=== PATIENT | female | born 1965 | race Caucasian/White ===

== ENCOUNTER 2018-11-06 06:24 | Day surgery (SDC) | payer BC ==
[2018-11-06] MEDS ORDERED: Midazolam 1 MG/ML 2 ML SDV ONE (07:06)
[2018-11-06] MEDS ORDERED: Ondansetron 4 MG/2 ML SDV ONE (07:06)
[2018-11-06] MEDS ORDERED: Propofol 200 MG/20 ML SDV ONE (07:06)
[2018-11-06] MEDS ORDERED: fentaNYL 100 MCG/2 ML SDV ONE (07:06)
[2018-11-06] MEDS ORDERED: Glycopyrrolate 0.2 MG/ML SDV ONE ×2 (07:07→09:33)
--- NOTE | 2018-11-06 07:36 | PCM.PREANE ---
Preanesthetic Assessment - Anesthesia/Transfusion/Family Hx Anesthesia History: Prior Anesthesia Without Reaction Other Type of Anesthesia Reaction Comment: pt adopted, unsure of family hx Family History of Anesthesia Reaction, Other: unknown adopted Transfusion History: No Prior Transfusion(s) Intubation History: Unknown - Review of Systems General: No Symptoms Pulmonary: No Symptoms Cardiovascular: No Symptoms Gastrointestinal: No Symptoms Neurological: No Symptoms Other: Reports: Diabetes - Physical Assessment NPO Status Date: 11/05/18 (Took AM med @ 5am) NPO Status Time: 22:30 Pulse: 69 O2 Sat by Pulse Oximetry: 98 Respiratory Rate: 16 Blood Pressure: 129/76 Temperature: 98 C Height: 1.68 m Weight: 104.326 kg ASA Class: 2 Mental Status: Alert & Oriented x3 Airway Class: Mallampati = 2 Dentition: Reports: Normal Dentition Thyro-Mental Finger Breadths: 3 Mouth Opening Finger Breadths: 3 ROM/Head Extension: Full Lungs: Clear to Auscultation Cardiovascular: Regular Rate - Allergies Allergies/Adverse Reactions: Allergies Allergy/AdvReac Type Severity Reaction Status Date / Time No Known Allergies Allergy Verified 11/03/18 11:38 - Blood Blood Available: No - Anesthesia Plan Free Text/Narrative:: GE with LMA Pre-Op Medication Ordered: None Beta Chi: Other - Acknowledgements Anesthesia Type Planned: General Anesthesia Pt an Appropriate Candidate for the Planned Anesthesia: Yes Alternatives and Risks of Anesthesia Discussed w Pt/Guardian: Yes Pt/Guardian Understands and Agrees with Anesthesia Plan: Yes Additional Comments: Discussed accepts ? answered. PreAnesthesia Questionnaire HEENT History: Reports: Other (See Below) Other HEENT History: wears glasses, diabetic retinopathy Cardiovascular History: Reports: Hypertension Other Cardiovascular History: HTN in the past, not on meds after weight loss Respiratory History: Reports: None Gastrointestinal History: Reports: None Genitourinary History: Reports: None Musculoskeletal History: Reports: Other (See Below) Other Musculoskeletal History: back surgeries for infection in back ( osyomyelitis) Neurological History: Reports: None Psychiatric History: Reports: None Endocrine/Metabolic History: Reports: Diabetes, Type II, Obesity/BMI 30+ Other Endocrine/Metabolic History: on no medication for diabetes after weight loss Hematologic History: Reports: None Immunologic History: Reports: None Oncologic (Cancer) History: Reports: None Dermatologic History: Reports: Other (See Below) Other Dermatologic History: painful scar-rt shoulder due to wound vac placement in the past - Past Surgical History Head Surgeries/Procedures: Reports: None HEENT Surgical History: Reports: Cataract Surgery, Tonsillectomy Other HEENT Surgeries/Procedures: Bilateral cataract surgery Cardiovascular Surgical History: Reports: None Respiratory Surgical History: Reports: None GI Surgical History: Reports: Bariatric Procedure Other GI Surgeries/Procedures: gastric bypass 10/04 Female Surgical History: Reports: None Endocrine Surgical History: Reports: None Neurological Surgical History: Reports: Other (See Below) Other Neurological Surgeries/Procedures: As above surgery due to infection to L3 - L4 Musculoskeletal Surgical History: Reports: Other (See Below) Other Musculoskeletal Surgeries/Procedures:: amputation of little toe-left foot Oncologic Surgical History: Reports: None Dermatological Surgical History: Reports: None - SUBSTANCE USE Smoking Status *Q: Never Smoker Recreational Drug Use History: No - HOME MEDS Home Medications: Home Meds Gabapentin [Neurontin] 1 tab PO TID 11/03/18 [History] Lifitegrast [Xiidra] 1 drop EYEBOTH BID 11/03/18 [History] Multivitamin [Multivitamins] 1 tab PO DAILY 11/03/18 [History] - CURRENT (IN HOUSE) MEDS Current Meds: Current Medications Hydrocodone Bitart/Acetaminophen ([place] 325-5 Mg) 1 tab PO Q4H PRN PRN Reason: Pain Bupivacaine HCl/Epinephrine Bitart (Marcaine 0.25%/Epinephrine 1:200,000) 10 ml INJECT ONETIME ONE Stop: 11/06/18 08:01 Cefazolin Sodium/Dextrose 2 gm (/ Premix) 50 mls @ 100 mls/hr IV ONETIME ONE Stop: 11/06/18 08:29 Lactated Ringer's (Ringers, Lactated) 1,000 mls @ 125 mls/hr IV ASDIRECTED LISSY Discontinued Medications Fentanyl (Sublimaze) Confirm Administered Dose 100 mcg .ROUTE .STK-MED ONE Stop: 11/06/18 07:07 Glycopyrrolate (Robinul) Confirm Administered Dose 0.2 mg .ROUTE .STK-MED ONE Stop: 11/06/18 07:08 Midazolam HCl (Versed 1 Mg/Ml) Confirm Administered Dose 2 mg .ROUTE .STK-MED ONE Stop: 11/06/18 07:07 Ondansetron HCl (Zofran) Confirm Administered Dose 4 mg .ROUTE .STK-MED ONE Stop: 11/06/18 07:07 Propofol (Diprivan 20 Ml) Confirm Administered Dose 400 mg .ROUTE .STK-MED ONE Stop: 11/06/18 07:07
[2018-11-06] MEDS ORDERED: Bupivacaine 25%/EPINEPHrine/PF 30 ML ONE (07:37)
[2018-11-06] MEDS ORDERED: ceFAZolin 2 GM in Premix Bag 1 BAG IV ONE (08:00)
[2018-11-06] MEDS ORDERED: Acetaminophen/HYDROcodone 325-5 MG Tab PO PRN (08:00)
[2018-11-06] MEDS ORDERED: Bupivacaine 0.25%/EPINEPHrine 1:200,000 10 ML SDV INJECT ONE (08:00)
[2018-11-06] MEDS ORDERED: Lactated Ringers 1,000 ML IV SCH (08:00)
[2018-11-06] MEDS ORDERED: Rocuronium 10 MG/ML 10 ML Syringe ONE (08:28)
[2018-11-06] MEDS ORDERED: Morphine 10 MG/ML Syringe ONE (08:30)
[2018-11-06] MEDS ORDERED: EPINEPHrine 1 MG/ML SDV ONE (08:34)
[2018-11-06] MEDS ORDERED: Lidocaine 1% 50 ML MDV ONE (08:35)
[2018-11-06] MEDS ORDERED: Sodium Chloride 0.9% 40 ML ONE (08:39)
[2018-11-06] MEDS ORDERED: ePHEDrine 50 MG/ML SDV ONE (08:39)
[2018-11-06] MEDS ORDERED: ceFAZolin 1 GM Vial ONE (08:39)
[2018-11-06] MEDS ORDERED: Neostigmine Methylsulfate 1 MG/ML 5 ML Syringe ONE (09:33)
--- NOTE | 2018-11-06 11:03 | PCM48HPAN ---
Post Anesthesia Note - EVALUATION WITHIN 48HRS OF ANESTHETIC Vital Signs in Normal Range: Yes Patient Participated in Evaluation: Yes Respiratory Function Stable: Yes Airway Patent: Yes Cardiovascular Function Stable: Yes Hydration Status Stable: Yes Pain Control Satisfactory: Yes Nausea and Vomiting Control Satisfactory: Yes Mental Status Recovered: Yes Pulse Rate: 69 Resp Rate: 14 Temperature: 208.4 F Blood Pressure: 129/76
[2018-11-06 13:25] VITALS: BP 138/71
--- NOTE | 2018-11-07 10:14 | PCM.OPNOTE ---
- General Post-Op/Procedure Note Date of Surgery/Procedure: 11/06/18 Operative Procedure(s): excision of right chest scar with copmlex repair 20cm and fat grafting to scar 30cc Pre Op Diagnosis: tethered, painful right chest scar Post-Op Diagnosis: Same Anesthesia Technique: General ET Tube, Local Primary Surgeon: Caitlyn Mejia [employer] Sales Representative: Sarita Schultz Reason [employer] Sales Representative Was Necessary: retraction prepping draping and closure assistance Complications: None Condition: Good
--- NOTE | 2018-11-08 16:57 | OR ---
SURGEON: TEETEE GERONIMO MD DATE OF PROCEDURE: 11/06/2018 PREOPERATIVE DIAGNOSIS: Tethered painful right chest scar. POSTOPERATIVE DIAGNOSIS: Tethered painful right chest scar. PROCEDURE: Excision of right chest scar with complex repair of 20 cm and fat grafting of scar, 30 mL. CORPORATE EVENT PLANNER: SARAHI Robbins. REASON FOR AND ROLE OF CORPORATE EVENT PLANNER: Retraction, prepping, draping, positioning and closure assistance. ANESTHESIA: General ET tube with local. INDICATIONS: Ms. Guy is a 53-year-old female, seen today with a significant large scar that is tethered in few ulnar right chest area. Risks and benefits of removal, repair, and grafting of tethered areas were discussed with her and she was in agreement to proceed. Risks were including, but not limited to, bleeding, infection, damage to underlying or overlying structures, possible need for future interventions, and possible scarring. PROCEDURE IN DETAIL: After informed consent was obtained and placed on the chart, the patient was brought to the operating theater and laid in supine position. After adequate general anesthesia was obtained, the area was prepped and draped and a time-out was completed to confirm side and site. Attention was then paid to excision of the previous large tethered and dense scar. This was removed and sent for pathology. Once adequately removed, the tissue was undermined significantly mostly in the lateral and inferior direction and advanced and anchored to the clavicle bone and fascia itself. This was done with deep 2-0 PDS Stratafix suture. Once adequately anchored and advanced, attention was then paid to closure of the skin with 3-0 Monocryl Stratafix for the dermis, and a running 4-0 subcuticular Stratafix for the skin. Once the wounds were adequately closed, attention was then paid to harvest of the fat grafting from the abdominal area. Tumescent was infiltrated for a total of 600 mL and 300 mL of fat was harvested. Once adequately harvested, the MicroAire fat grafting system was used to isolate the fat graft itself. A total of 30 mL was then used and injected around the scar into the tethered and thinned areas to help soften and fill the contour deficits. Once this was completed, the wounds were dressed with Steri-Strips, fluffs, and ABD dressing. The patient tolerated this well, and all counts and needles were correct at the end of the case. FOLLOWUP INSTRUCTIONS: The patient will see us in clinic in approximately one week, sooner if any problems, questions, or concerns. HEGGTHE / JOHNL /[id number]
== END 2018-11-06 11:18 | disposition home or self-care (01) ==
LOC: MW.SDS 06:24
PROVIDERS: ATTEND Plastic Surgery
DX: L90.5 Scar conditions and fibrosis of skin (principal); I10 Essential (primary) hypertension; E11.9 Type 2 diabetes mellitus without complications; E66.9 Obesity, unspecified; Z87.39 Personal history of other diseases of the musculoskeletal system and connective tissue; Z79.899 Other long term (current) drug therapy; Z98.84 Bariatric surgery status
CPT/HCPCS: 13101; 13102; 20926; J0131; J0171; J0690; J2001; J2250; J2270; J2405; J2704; J3010; J3490; J7120

== ENCOUNTER 2020-11-10 21:50 | Emergency (ER) | payer BC ==
[2020-11-10] MEDS ORDERED: Cephalexin 500 MG Cap PO ONE (22:53)
--- NOTE | 2020-11-10 22:59 | EDM.PDOC ---
ED HPI GENERAL MEDICAL PROBLEM - General Chief Complaint: Upper Extremity Injury/Pain Stated Complaint: LT HAND SWOLLEN Time Seen by Provider: 11/10/20 22:31 - History of Present Illness INITIAL COMMENTS - FREE TEXT/NARRATIVE: HISTORY AND PHYSICAL: History of present illness: This is a 55-year-old female who presents ER today complaining of pain at suture sites that were placed approximately 2 weeks ago for carpal tunnel syndrome. Patient reports that she had surgery done in [facility] under Dr. Diop. Patient reports that she returned to work couple days ago at [employer] and today started feeling extreme amount of pressure and discomfort at the proximal sutures at her wrist. Patient denies any other symptomatology. Patient reports of the distal sutures are not bothering her. Patient ports that she is scheduled to see Dr. Parker on Friday. Review of systems: As per history of present illness and below otherwise all systems reviewed and negative. Past medical history: As per history of present illness and as reviewed below otherwise noncontributory. Surgical history: As per history of present illness and as reviewed below otherwise noncontributory. Social history: No reported history of drug or alcohol abuse. Family history: As per history of present illness and as reviewed below otherwise noncontributory. Physical exam: This patient was seen and evaluated during the 2019 SARS-CoV-2 novel coronavirus pandemic period. Community viral transmission is ongoing at time of this encounter and the emergency department is operating under pandemic response procedures. Constitutional: Patient is oriented to person, place, and time. Appears well- developed and well-nourished. No distress. HEENT: Moist mucous membranes Head: Normocephalic and atraumatic Eyes: Right eye exhibits no discharge. Left eye exhibits no discharge. No scleral icterus Neck: Normal range of motion. No tracheal deviation present. Cardiovascular: Normal rate and regular rhythm. Pulmonary: Effort normal, no respiratory distress. Abdominal: No distention Musculoskeletal: Normal range of motion Neurologic: Alert and oriented to person, place and time. Skin: [place], warm and dry. Psychiatric: Normal mood and affect. Behavior is normal. Judgment and thought content normal. Nursing note and vital signs have been reviewed Patient's ER physical exam is significant for swelling, tenderness and slight warmth at the proximal suture sites. Wound was explored in a moderate amount of purulent material was expressed out of the wound. Distal wound is clean and dry without any fluctuance erythema or warmth. Patient is otherwise neurovascular intact. Patient is able to flex and extend all fingers. Patient sensation is intact. After releasing the purulent material, the patient reports that she has decreased pain and increased mobility to her fingers distally. Diagnostics: Wound cultures Therapeutics: I&D of postoperative abscess to left hand performed in ED. Moderate amount of purulent drainage obtained. Sutures were removed after discussion with Dr. Parker. Cultures have been sent. Assessment and plan: This is a 55-year-old female who presents ER today with a postoperative wound infection of her left wrist status post carpal tunnel surgery. I have discussed the case with Dr. Parker. He has recommended removal of the sutures and to drain out the purulent material. Patient be started on Keflex and will have the wound stay open until reevaluated by Dr. Parker on Friday. Reassessment at the time of disposition demonstrates that the patient is in no acute distress. The patient has remained stable throughout the entire ED visit and is without objective evidence for acute process requiring urgent intervention or hospitalization. The patient is stable for discharge, counseling is provided as documented above, discussed symptomatic treatment and specific conditions for return. I have spoken with the patient/caregiver and discussed todays findings, in addition to providing specific details for the plan of care. Questions are answered and there is agreement with the plan. Definitive disposition and diagnosis as appropriate pending reevaluation and review of above. Left Wrist Pain Score (Numeric/FACES): 5 - Related Data Allergies Allergy/AdvReac Type Severity Reaction Status Date / Time No Known Allergies Allergy Verified 11/10/20 22:21 Home Meds: Home Meds Gabapentin [Neurontin] 900 mg PO TID 11/10/20 [History] Losartan [Cozaar] 50 mg PO DAILY 11/10/20 [History] cephALEXin [Keflex] 500 mg PO Q8H #21 cap 11/10/20 [Rx] metFORMIN [Glucophage XR] 500 mg PO BID 11/10/20 [History] traMADol [Ultram] 50 mg PO Q6H PRN #12 tab 11/10/20 [Rx] Past Medical History HEENT History: Reports: Other (See Below) Other HEENT History: wears glasses, diabetic retinopathy Cardiovascular History: Reports: Hypertension Other Cardiovascular History: HTN in the past, not on meds after weight loss Respiratory History: Reports: None Gastrointestinal History: Reports: None Genitourinary History: Reports: None Musculoskeletal History: Reports: Arthritis, Other (See Below) Other Musculoskeletal History: back surgeries for infection in back (osyomyelitis) Neurological History: Reports: None Psychiatric History: Reports: None Endocrine/Metabolic History: Reports: Diabetes, Type II, Obesity/BMI 30+ Other Endocrine/Metabolic History: on no medication for diabetes after weight loss Hematologic History: Reports: None Immunologic History: Reports: None Oncologic (Cancer) History: Reports: None Dermatologic History: Reports: Other (See Below) Other Dermatologic History: painful scar-rt shoulder due to wound vac placement in the past - Infectious Disease History Infectious Disease History: Reports: None - Past Surgical History Head Surgeries/Procedures: Reports: None HEENT Surgical History: Reports: Cataract Surgery, Tonsillectomy Other HEENT Surgeries/Procedures: Bilateral cataract surgery Cardiovascular Surgical History: Reports: None Respiratory Surgical History: Reports: None GI Surgical History: Reports: Bariatric Procedure Other GI Surgeries/Procedures: gastric bypass 10/04 Female Surgical History: Reports: None Endocrine Surgical History: Reports: None Neurological Surgical History: Reports: Other (See Below) Other Neurological Surgeries/Procedures: As above surgery due to infection to L3- L4 Musculoskeletal Surgical History: Reports: Other (See Below) Other Musculoskeletal Surgeries/Procedures:: amputation of little toe-left foot Oncologic Surgical History: Reports: None Dermatological Surgical History: Reports: None Social & Family History - Tobacco Use Tobacco Use Status *Q: Never Tobacco User - Caffeine Use Caffeine Use: Reports: None - Recreational Drug Use Recreational Drug Use: No Review of Systems - Review of Systems Review Of Systems: See Below ED EXAM, GENERAL - Physical Exam Exam: See Below Course - Vital Signs Last Recorded V/S: Last Vital Signs Temp 98.5 F 11/10/20 22:22 Pulse 81 11/10/20 22:22 Resp 16 11/10/20 22:22 BP 149/64 H 11/10/20 22:22 Pulse Ox 100 11/10/20 22:22 - Orders/Labs/Meds Orders: Active Orders 24 hr Category Date Time Status CULTURE WOUND [RM] Stat Lab 11/10/20 22:47 Received cephALEXin [Keflex] Med 11/10/20 22:53 Once 500 mg PO ONETIME ONE Departure - Departure Time of Disposition: 22:56 Disposition: Home, Self-Care 01 Condition: Good Clinical Impression: Postoperative wound infection - Discharge Information Instructions: Wound Infection Referrals: PCP,None [Primary Care Provider] - Additional Instructions: You were seen and evaluated in the ER today and were diagnosed with a postoperative wound infection. The sutures have been removed and we have drained as much purulent material as we can. I have discussed the case with your surgeon and he is recommending that we removed sutures and placed on Keflex 500 mg 3 times a day for 7 days. He wants to see you in the office on Friday. Please return to the ER if you have increased pain or swelling. Please make sure that you keep the wound from closing so that any further purulent material can continue to be expressed out. I will give you prescription for Ultram to assist you with your pain and discomfort. The following information is given to patients seen in the emergency department who are being discharged to home. This information is to outline your options for follow-up care. We provide all patients seen in our emergency department with a follow-up referral. The need for follow-up, as well as the timing and circumstances, are variable depending upon the specifics of your emergency department visit. If you don't have a primary care physician on staff, we will provide you with a referral. We always advise you to contact your personal physician following an emergency department visit to inform them of the circumstance of the visit and for follow-up with them and/or the need for any referrals to a consulting specialist. The emergency department will also refer you to a specialist when appropriate. This referral assures that you have the opportunity for follow-up care with a specialist. All of these measure are taken in an effort to provide you with optimal care, which includes your follow-up. Under all circumstances we always encourage you to contact your private physician who remains a resource for coordinating your care. When calling for follow-up care, please make the office aware that this follow-up is from your recent emergency room visit. If for any reason you are refused follow-up, please contact the [facility] Emergency Department at and asked to speak to the emergency department charge nurse. [facility] - Primary Care [address] [place] [id number] [facility] [address] [place] [address] Sepsis Event Note (ED) - Evaluation Sepsis Screening Result: No Definite Risk - Focused Exam Vital Signs: Vital Signs Temp Pulse Resp BP Pulse Ox 11/10/20 22:22 98.5 F 81 16 149/64 H 100 - My Orders Last 24 Hours: My Active Orders 11/10/20 22:47 CULTURE WOUND [RM] Stat 11/10/20 22:53 cephALEXin [Keflex] 500 mg PO ONETIME ONE - Assessment/Plan Last 24 Hours: My Active Orders 11/10/20 22:47 CULTURE WOUND [RM] Stat 11/10/20 22:53 cephALEXin [Keflex] 500 mg PO ONETIME ONE
[2020-11-10 23:21] VITALS: BP 140/72; PULSE 75
== END 2020-11-10 23:11 | disposition home or self-care (01) ==
LOC: MW.ED 21:50
DX: T81.49XA Infection following a procedure, other surgical site, initial encounter (principal); I10 Essential (primary) hypertension; E66.9 Obesity, unspecified; E11.319 Type 2 diabetes mellitus with unspecified diabetic retinopathy without macular edema; Z79.84 Long term (current) use of oral hypoglycemic drugs; Z79.899 Other long term (current) drug therapy; Z68.38 Body mass index [BMI] 38.0-38.9, adult
CPT/HCPCS: 10060; 87070; 87077; 87186; 99283; A9270

== ENCOUNTER 2020-11-11 14:03 | Emergency (ER) | payer BC ==
--- NOTE | 2020-11-11 14:18 | EDM.PDOC ---
ED HPI GENERAL MEDICAL PROBLEM - General Chief Complaint: Skin Complaint Stated Complaint: VERY SWOLLEN LT HAND Time Seen by Provider: 11/11/20 14:05 Source of Information: Reports: Patient History Limitations: Reports: No Limitations - History of Present Illness INITIAL COMMENTS - FREE TEXT/NARRATIVE: HISTORY AND PHYSICAL: History of present illness: Patient is a 55-year-old female who presents emergency room today with concern of worsening infection of her left hand following a carpal tunnel surgery and a trigger release surgery that was done approximately [address] Diop in [place]. Patient states he was seen in the emergency room last night and has received Keflex antibiotics and states that she had a small area of infection drained at her incision site. Patient states that pus did come out. Patient states that she took a dose of the antibiotics last night before bed and took another dose of antibiotics this morning but states when she woke up this morning, she has had worsening infection, unable to completely straighten her fingers, and the infection is spreading up her forearm. Patient states that the infection is significantly worse this morning than it was when she was seen in the emergency room last night. Patient states that she called the [place] emergency room trying to get a hold of Dr. Diop she and was instructed that he was not on-call and they recommended she come to [facility] emergency room instead. Patient states she has a history of osteomyelitis in the past and was also concerned about this. Patient denies fever, chills, chest pain, shortness of breath, or cough. Denies headache, neck stiff ness, change in vision, syncope, or near syncope. Denies nausea, vomiting, abdominal pain, diarrhea, constipation, or dysuria. Has not noted any blood in urine or stool. Patient has been eating and drinking appropriately. Review of systems: As per history of present illness and below otherwise all systems reviewed and negative. Past medical history: As per history of present illness and as reviewed below otherwise noncontributory. Surgical history: As per history of present illness and as reviewed below otherwise noncontributory. Social history: See social history for further information Family history: As per history of present illness and as reviewed below otherwise noncontributory. Physical exam: General: Patient is alert, oriented, and in no acute distress. Patient sitting comfortably on exam table. Vitals stable and reviewed by me. HEENT: Atraumatic, normocephalic, pupils equal and reactive bilaterally, negative for conjunctival pallor or scleral icterus, mucous membranes moist, TMs normal bilaterally, throat clear, neck supple, nontender, trachea midline. No drooling or trismus noted. No meningeal signs. No hot potato voice noted. Lungs: Clear to auscultation, breath sounds equal bilaterally, chest nontender. Heart: S1S2, regular rate and rhythm without overt murmur Abdomen: Soft, nondistended, nontender. Negative for masses or hepatosplenomegaly. Negative for costovertebral tenderness. Pelvis: Stable nontender. Genitourinary: Deferred. Rectal: Deferred. Skin: Intact, warm, dry. No lesions or rashes noted. Extremities: The left hand is edematous/erythematous of both the volar and palmar aspects with fingers held in flexion. There is an incision at the proximal base of the left palmar aspect with a small amount of clear fluid draining and another incision with sutures in place at the distal palmar aspect of the left hand that appears to be healing well. Patient is unable to straighten her digits of the left hand with active ROM and has severe pain with passive extension of all digits of the left hand. The area of erythema extends up the inner portion of the left wrist and half way up the forearm with increase in warmth. Limited ROM of the left wrist due to pain. Radial pulse is grossly intact of the LUE with cap refill < 2 seconds. Intact sensation to light and deep touch of the LUE. Otherwise, atraumatic, negative for cords or calf pain. Neurovascular unremarkable. Neuro: Awake, alert, oriented. Cranial nerves II through XII unremarkable. Cerebellum unremarkable. Motor and sensory unremarkable throughout. Exam nonfocal. Notes: Initial exam, patient is vitally stable and otherwise well-appearing but does have a significant infection of her left hand which is extending up her left forearm. Clinically, I am concerned of possible flexor tenosynovitis versus worsening postop infection/cellulitis. Patient also has a history of osteomyelitis so also concerned about this in my differential. We will perform lab work as well as x-ray imaging of the area of infection. Will obtain blood cultures, start vancomycin and Zosyn IV while awaiting diagnostic completion. I was able to speak to patients surgeon at [facility], Dr. Diop who recommends transfer to their facility to be admitted under their hospitalist with consult to Dr. Cutler. I spoke to Dr. Hightower, hospitalist for [facility], thoroughly discussed patient's case and is accepting of transfer. Patient remains comfortable and vitally stable throughout stay in ED. Patient will transfer via private vehicle. Voices understanding and is agreeable to plan of care. Denies any further questions or concerns at this time. Diagnostics: CBC, CMP, Blood cultures x 2, lactate, hand/forearm XR/LT Therapeutics: NS, Vancomycin, Zosyn Impression: Post op wound infection Cellulitis, cannot r/o flexor tenosynovitis Plan: Transfer to Dr. Hightower (Dr. Diop/Ortho), hospitalist, at [facility] in [place] via private vehicle. Definitive disposition and diagnosis as appropriate pending reevaluation and review of above. Left hand Pain Score (Numeric/FACES): 6 - Related Data Allergies Allergy/AdvReac Type Severity Reaction Status Date / Time No Known Allergies Allergy Verified 11/10/20 22:21 Home Meds: Home Meds Gabapentin [Neurontin] 900 mg PO TID 11/10/20 [History] Losartan [Cozaar] 50 mg PO DAILY 11/10/20 [History] cephALEXin [Keflex] 500 mg PO Q8H #21 cap 11/10/20 [Rx] metFORMIN [Glucophage XR] 500 mg PO BID 11/10/20 [History] traMADol [Ultram] 50 mg PO Q6H PRN #12 tab 11/10/20 [Rx] Past Medical History HEENT History: Reports: Other (See Below) Other HEENT History: wears glasses, diabetic retinopathy Cardiovascular History: Reports: Hypertension Other Cardiovascular History: HTN in the past, not on meds after weight loss Respiratory History: Reports: None Gastrointestinal History: Reports: None Genitourinary History: Reports: None Musculoskeletal History: Reports: Arthritis, Other (See Below) Other Musculoskeletal History: back surgeries for infection in back (osyomyelitis) Neurological History: Reports: None Psychiatric History: Reports: None Endocrine/Metabolic History: Reports: Diabetes, Type II, Obesity/BMI 30+ Other Endocrine/Metabolic History: on no medication for diabetes after weight loss Hematologic History: Reports: None Immunologic History: Reports: None Oncologic (Cancer) History: Reports: None Dermatologic History: Reports: Other (See Below) Other Dermatologic History: painful scar-rt shoulder due to wound vac placement in the past - Infectious Disease History Infectious Disease History: Reports: None - Past Surgical History Head Surgeries/Procedures: Reports: None HEENT Surgical History: Reports: Cataract Surgery, Tonsillectomy Other HEENT Surgeries/Procedures: Bilateral cataract surgery Cardiovascular Surgical History: Reports: None Respiratory Surgical History: Reports: None GI Surgical History: Reports: Bariatric Procedure Other GI Surgeries/Procedures: gastric bypass 10/04 Female Surgical History: Reports: None Endocrine Surgical History: Reports: None Neurological Surgical History: Reports: Other (See Below) Other Neurological Surgeries/Procedures: As above surgery due to infection to L 3- L4 Musculoskeletal Surgical History: Reports: Other (See Below) Other Musculoskeletal Surgeries/Procedures:: amputation of little toe-left foot Oncologic Surgical History: Reports: None Dermatological Surgical History: Reports: None Social & Family History - Caffeine Use Caffeine Use: Reports: None ED ROS GENERAL - Review of Systems Review Of Systems: Comprehensive ROS is negative, except as noted in HPI. ED EXAM, SKIN/RASH Exam: See Below (see dictation) Course - Vital Signs Last Recorded V/S: Last Vital Signs Temp 96.9 F 11/11/20 14:23 Pulse 88 11/11/20 16:25 Resp 17 11/11/20 16:25 BP 131/45 L 11/11/20 16:25 Pulse Ox 95 11/11/20 16:25 - Orders/Labs/Meds Orders: Active Orders 24 hr Category Date Time Status CULTURE BLOOD [BC] Stat Lab 11/11/20 14:44 Received CULTURE BLOOD [BC] Stat Lab 11/11/20 15:06 Received Sodium Chloride 0.9% [Saline Flush] Med 11/11/20 14:42 Active 10 ml FLUSH ASDIRECTED PRN Sodium Chloride 0.9% [Saline Flush] Med 11/11/20 14:42 Active 2.5 ml FLUSH ASDIRECTED PRN Blood Culture x2 Reflex Set [OM.PC] Stat Oth 11/11/20 14:43 Ordered Saline Lock Insert [OM.PC] Stat Oth 11/11/20 14:42 Ordered Medication Orders Sodium Chloride (Sodium Chloride 0.9% 10 Ml Syringe) 10 ml FLUSH ASDIRECTED PRN PRN Reason: Keep Vein Open Last Admin: 11/11/20 14:45 Dose: 10 ml Documented by: CARLITOS Sodium Chloride (Sodium Chloride 0.9% 2.5 Ml Syringe) 2.5 ml FLUSH ASDIRECTED PRN PRN Reason: Keep Vein Open Last Admin: 11/11/20 14:45 Dose: 2.5 ml Documented by: CARLITOS Labs: Laboratory Tests 11/11/20 11/11/20 11/11/20 Range/Units 14:44 14:44 14:44 WBC 15.10 H (4.0-11.0) K/uL RBC 3.50 L (4.30-5.90) M/uL Hgb 11.0 L (12.0-16.0) g/dL Hct 33.2 L (36.0-46.0) % MCV 94.9 (80.0-98.0) fL MCH 31.4 (27.0-32.0) pg MCHC 33.1 (31.0-37.0) g/dL RDW Std Deviation 42.6 (28.0-62.0) fl RDW Coeff of Ratna 12 (11.0-15.0) % Plt Count 215 (150-400) K/uL MPV 10.60 (7.40-12.00) fL Neut % (Auto) 79.5 (48.0-80.0) % Lymph % (Auto) 12.5 L (16.0-40.0) % Sherman % (Auto) 7.4 (0.0-15.0) % Eos % (Auto) 0.5 (0.0-7.0) % Baso % (Auto) 0.1 (0.0-1.5) % Neut # (Auto) 12.0 H (1.4-5.7) K/uL Lymph # (Auto) 1.9 (0.6-2.4) K/uL Sherman # (Auto) 1.1 H (0.0-0.8) K/uL Eos # (Auto) 0.1 (0.0-0.7) K/uL Baso # (Auto) 0.0 (0.0-0.1) K/uL Nucleated RBC % 0.0 /100WBC Nucleated RBCs # 0 K/uL Lactate 0.9 (0.20-2.00) mmol/L Sodium 136 (136-145) mmol/L Potassium 4.3 (3.5-5.1) mmol/L Chloride 100 (98-107) mmol/L Carbon Dioxide 27.7 (21.0-32.0) mmol/L BUN 25 H (7.0-18.0) mg/dL Creatinine 0.9 (0.6-1.0) mg/dL Est Cr Clr Drug Dosing 66.90 mL/min Estimated GFR (MDRD) > 60.0 ml/min Glucose 185 H (74-106) mg/dL Calcium 9.1 (8.5-10.1) mg/dL Total Bilirubin 0.7 (0.2-1.0) mg/dL AST 12 L (15-37) IU/L ALT 22 (14-63) IU/L Alkaline Phosphatase 101 (46-116) U/L Total Protein 8.2 (6.4-8.2) g/dL Albumin 3.9 (3.4-5.0) g/dL Globulin 4.3 H (2.6-4.0) g/dL Albumin/Globulin Ratio 0.9 (0.9-1.6) Meds: Medications Generic Name Dose Route Start Last Admin Trade Name Freq PRN Reason Stop Dose Admin Sodium Chloride 10 ml 11/11/20 14:42 11/11/20 14:45 Sodium Chloride 0.9% 10 Ml Syringe FLUSH 10 ml ASDIRECTED PRN Administration Keep Vein Open Sodium Chloride 2.5 ml 11/11/20 14:42 11/11/20 14:45 Sodium Chloride 0.9% 2.5 Ml Syringe FLUSH 2.5 ml ASDIRECTED PRN Administration Keep Vein Open Discontinued Medications Generic Name Dose Route Start Last Admin Trade Name Freq PRN Reason Stop Dose Admin Vancomycin HCl 1 gm/ Sodium 250 mls @ 166 mls/hr 11/11/20 14:37 11/11/20 14:43 Chloride IV 11/11/20 16:07 166 mls/hr ONETIME ONE Administration Piperacillin Sod/Tazobactam 50 mls @ 100 mls/hr 11/11/20 14:37 11/11/20 14:43 Sod 3.375 gm/ Sodium Chloride IV 11/11/20 15:06 100 mls/hr ONETIME ONE Administration Sodium Chloride 1,000 mls @ 999 mls/hr 11/11/20 14:42 11/11/20 14:44 Normal Saline IV 11/11/20 15:42 999 mls/hr BOLUS ONE Administration Departure - Departure Time of Disposition: 17:57 Disposition: DC/[facility]fer to [facility] 02 Clinical Impression: Postoperative wound infection Cellulitis Qualifiers: Site of cellulitis: extremity Site of cellulitis of extremity: upper extremity Laterality: left Qualified Code(s): L03.114 - Cellulitis of left upper limb - Discharge Information Referrals: Zheng Martin MD [Primary Care Provider] - Forms: ED Department Discharge Sepsis Event Note (ED) - Focused Exam Vital Signs: Vital Signs Temp Pulse Resp BP Pulse Ox 11/11/20 16:25 88 17 131/45 L 95 11/11/20 14:23 96.9 F 93 18 140/76 98 - My Orders Last 24 Hours: My Active Orders 11/11/20 14:42 Sodium Chloride 0.9% [Saline Flush] 10 ml FLUSH ASDIRECTED PRN Sodium Chloride 0.9% [Saline Flush] 2.5 ml FLUSH ASDIRECTED PRN Saline Lock Insert [OM.PC] Stat 11/11/20 14:43 Blood Culture x2 Reflex Set [OM.PC] Stat 11/11/20 14:44 CULTURE BLOOD [BC] Stat 11/11/20 15:06 CULTURE BLOOD [BC] Stat - Assessment/Plan Last 24 Hours: My Active Orders 11/11/20 14:42 Sodium Chloride 0.9% [Saline Flush] 10 ml FLUSH ASDIRECTED PRN Sodium Chloride 0.9% [Saline Flush] 2.5 ml FLUSH ASDIRECTED PRN Saline Lock Insert [OM.PC] Stat 11/11/20 14:43 Blood Culture x2 Reflex Set [OM.PC] Stat 11/11/20 14:44 CULTURE BLOOD [BC] Stat 11/11/20 15:06 CULTURE BLOOD [BC] Stat
[2020-11-11] MEDS ORDERED: Piperacillin/Tazobactam 3.375 GM in Sodium Chloride 0.9% 50 ML IV ONE (14:37)
[2020-11-11] MEDS ORDERED: Sodium Chloride 0.9% 2.5 ML Syringe FLUSH PRN (14:42)
[2020-11-11] MEDS ORDERED: Sodium Chloride 0.9% 1,000 ML IV ONE (14:42)
[2020-11-11] MEDS ORDERED: Sodium Chloride 0.9% 10 ML Syringe FLUSH PRN (14:42)
[2020-11-11 15:14] LABS: BLOOD UREA NITROGEN,BUN 25 mg/dL (7.0-18.0); CARBON DIOXIDE,CO2 27.7 mmol/L (21.0-32.0); CHLORIDE,CL 100 mmol/L (98-107); GLUCOSE RANDOM 185 mg/dL (74-106); POTASSIUM,K 4.3 mmol/L (3.5-5.1); SODIUM,NA 136 mmol/L (136-145)
--- NOTE | 2020-11-11 15:45 | CR ---
INDICATION: Cellulitis. Assess for osteomyelitis. Recent carpal tunnel and trigger finger surgery. Decreased range of motion. Possible infection. TECHNIQUE: Three views of the left hand. FINDINGS: Normal skeletal mineralization. Dorsal soft tissue swelling. The palmar soft tissue swelling. No fracture, dislocation, erosion, or radiodense foreign body. No plain radiographic evidence for osteomyelitis. IMPRESSION: Soft tissue swelling of the left hand. No fracture, dislocation, erosion, and no plain radiographic evidence for osteomyelitis. Dictated by Zelalem Cabrera MD @ Nov 11 2020 3:43PM Signed by Dr. Zelalem Cabrera @ Nov 11 2020 3:44PM
--- NOTE | 2020-11-11 15:47 | CR ---
INDICATION: Cellulitis. Evaluate osteomyelitis. TECHNIQUE: Two views of the left forearm. FINDINGS: Soft tissue swelling about the left forearm/edema. No fracture, dislocation, erosion, or intrinsic skeletal lesion. No evidence for osteomyelitis. IMPRESSION: Soft tissue swelling/edema. The examination is otherwise negative. Dictated by Zelalem Cabrera MD @ Nov 11 2020 3:43PM Signed by Dr. Zelalem Cabrera @ Nov 11 2020 3:45PM
[2020-11-11 16:27] VITALS: BP 131/45; PULSE 88
== END 2020-11-11 17:45 ==
LOC: MW.ED 14:03
DX: T81.49XA Infection following a procedure, other surgical site, initial encounter (principal); L03.114 Cellulitis of left upper limb; I10 Essential (primary) hypertension; E11.319 Type 2 diabetes mellitus with unspecified diabetic retinopathy without macular edema; E66.9 Obesity, unspecified; Z68.38 Body mass index [BMI] 38.0-38.9, adult; Z98.890 Other specified postprocedural states; Z79.84 Long term (current) use of oral hypoglycemic drugs; Z79.899 Other long term (current) drug therapy
CPT/HCPCS: 36415; 73090; 73130; 80053; 83605; 85025; 87040; 96365; 96366; 96367; 99285; J2543; J3370; J7030; J7050; 99284

== ENCOUNTER 2024-08-02 20:28 | Emergency (ER) | payer OTHER, BC ==
[2024-08-02 21:31] VITALS: BP 174/75
[2024-08-02] MEDS: Acetaminophen/oxyCODONE 325-5 MG Tab PO ONE (22:40)
[2024-08-03 00:14] VITALS: PULSE 75
== END 2024-08-03 00:13 | disposition home or self-care (01) ==
LOC: MW.ED 20:28
DX: S82.65XA Nondisplaced fracture of lateral malleolus of left fibula, initial encounter for closed fracture (principal); Z75.8 Other problems related to medical facilities and other health care; I10 Essential (primary) hypertension; E11.9 Type 2 diabetes mellitus without complications; E66.9 Obesity, unspecified; Z86.16 Personal history of COVID-19; Z98.84 Bariatric surgery status; Z79.899 Other long term (current) drug therapy; Z68.38 Body mass index [BMI] 38.0-38.9, adult; W00.0XXA Fall on same level due to ice and snow, initial encounter
CPT/HCPCS: 29515; 73610; 99283; A9270

== ENCOUNTER 2024-11-10 06:31 | Day surgery (SDC) | payer BC, MEDICARE ==
[~2024-11-10 06:31] MED LIST: Acetaminophen 1,000 MG in Premix Bag 1 BAG IV SCH; ceFAZolin 2 GM in Sodium Chloride 0.9% 50 ML IV ONE
[2024-11-10] MEDS ORDERED: Sodium Chloride 0.9% 20 ML ONE (06:42)
[2024-11-10] MEDS ORDERED: fentaNYL 100 MCG/2 ML SDV ONE (06:42)
[2024-11-10] MEDS ORDERED: dexmedeTOMIDine HCl 200 MCG/2 ML SDV ONE (06:42)
[2024-11-10] MEDS ORDERED: Morphine 10 MG/ML SDV ONE (06:42)
[2024-11-10] MEDS ORDERED: Magnesium Sulfate (4.06 MEQ/ML) 5 GM/10 ML SDV ONE (06:43)
[2024-11-10] MEDS ORDERED: Rocuronium Bromide 50 MG/5 ML Syringe ONE ×2 (06:44→09:35)
[2024-11-10] MEDS ORDERED: Ondansetron 4 MG/2 ML SDV ONE (06:45)
[2024-11-10] MEDS ORDERED: Metoclopramide 10 MG/2 ML SDV ONE (06:45)
[2024-11-10] MEDS ORDERED: Dexamethasone 4 MG/ML 5 ML MDV ONE (06:45)
[2024-11-10] MEDS ORDERED: Lidocaine 2% 5 ML SDV ONE (06:45)
[2024-11-10] MEDS ORDERED: Ketorolac 30 MG/ML SDV ONE (06:45)
[2024-11-10] MEDS ORDERED: Sugammadex Sodium 200 MG/2 ML VIAL IV ONE ×2 (06:45→10:32)
[2024-11-10] MEDS ORDERED: propofoL 500 MG/50 ML 100 ML ONE (06:46)
[2024-11-10] MEDS ORDERED: Scopalamine 1mg/3day Transdermal Patch ONE (06:55)
[2024-11-10] MEDS: Pregabalin 75 MG Cap PO SCH (07:00)
[2024-11-10] MEDS ORDERED: Bupivacaine 0.25% 30 ML SDV ONE ×2 (07:01→07:32)
[2024-11-10] MEDS: Lactated Ringers 1,000 ML IV SCH (07:12)
[2024-11-10] MEDS ORDERED: Ropivacaine 0.5% 5 MG/ML 30 ML SDV ONE (07:32)
[2024-11-10] MEDS ORDERED: ceFAZolin 2 GM Vial ONE (07:47)
[2024-11-10] MEDS ORDERED: ceFAZolin 1 GM Vial ONE (07:48)
[2024-11-10] MEDS ORDERED: HYDROmorphone 1 MG/ML Syringe IVPUSH PRN (07:57)
[2024-11-10] MEDS ORDERED: Metoclopramide 10 MG/2 ML SDV IVPUSH PRN (07:57)
[2024-11-10] MEDS ORDERED: Morphine 2 MG/ML SYRINGE IVPUSH PRN (07:57)
[2024-11-10] MEDS ORDERED: Phenylephrine HCl In 0.9% NaCl 1 MG/10 ML Syringe IVPUSH PRN (07:57)
[2024-11-10] MEDS ORDERED: Naloxone 0.4 MG/ML SDV IVPUSH PRN (07:57)
[2024-11-10] MEDS ORDERED: Albuterol 0.083% 2.5 MG/3 ML Neb Soln NEB PRN (07:57)
[2024-11-10] MEDS ORDERED: fentaNYL 50 MCG/ML SDV IVPUSH PRN (07:57)
[2024-11-10] MEDS ORDERED: Ondansetron 4 MG/2 ML SDV IVPUSH PRN (07:57)
[2024-11-10 13:01] VITALS: BP 159/66; PULSE 74
== END 2024-11-10 12:57 | disposition home or self-care (01) ==
LOC: MW.SDS 06:31
PROVIDERS: ATTEND Surgery
DX: K80.20 Calculus of gallbladder without cholecystitis without obstruction (principal); I10 Essential (primary) hypertension; E11.42 Type 2 diabetes mellitus with diabetic polyneuropathy; Z79.84 Long term (current) use of oral hypoglycemic drugs; Z79.899 Other long term (current) drug therapy
CPT/HCPCS: 47562; 64488; A9270; J0665; J0690; J1100; J1885; J2003; J2272; J2704; J2795; J3010; J3475; J7120; 00790; 64486; 88304; J2405; J2765; J3490

== ENCOUNTER 2025-07-07 20:45 | Emergency (ER) | payer MEDICARE ==
[2025-07-07 23:02] VITALS: BP 139/75; PULSE 82
== END 2025-07-07 23:01 | disposition home or self-care (01) ==
LOC: MW.ED 20:45
DX: S80.11XA Contusion of right lower leg, initial encounter (principal); I10 Essential (primary) hypertension; E11.319 Type 2 diabetes mellitus with unspecified diabetic retinopathy without macular edema; Z79.899 Other long term (current) drug therapy; Z79.82 Long term (current) use of aspirin; X58.XXXA Exposure to other specified factors, initial encounter
CPT/HCPCS: 93971-26-RT; 93971-RT; 99283